=== PATIENT | female | born 1965 | race Caucasian/White ===

== ENCOUNTER 2016-12-13 13:10 | Inpatient (IN) | payer MEDICAID ==
[~2016-12-13] VITALS: Ht 170.2 cm; Wt 74.9 kg
[2016-12-13 14:10] LABS: CALCIUM 9.6 mg/dL (8.5-10.1); CARBON DIOXIDE 22.7 mmol/L (21-32); CHLORIDE SERUM 101 mmol/L (98-107); CREATININE SERUM 0.7 mg/dL (0.6-1.0); GFR1 > 60 mL/min; GLUCOSE SERUM 247 mg/dL (74-106); POTASSIUM SERUM 3.4 mmol/L (3.5-5.1); SODIUM SERUM 139 mmol/L (136-145)
[2016-12-13 14:15] LABS: ALBUMIN 4.2 g/dL (3.4-5.0); ALKALINE PHOSPHATASE 99 U/L (46-116); ALT/SGPT 42 U/L (14-59); AST/SGOT 17 U/L (15-37); BILIRUBIN TOTAL 0.92 mg/dL (0.20-1.00)
[2016-12-13 14:16] LABS: BASOPHIL % 0.4 % (0-2); PLATELET COUNT 275 x10^3mcL (130-400); RED CELL DISTRIBUTION WIDTH 12.8 % (11.5-14.5)
[2016-12-13 14:17] LABS: TOTAL PROTEIN, SERUM 8.5 g/dL (6.4-8.2)
[2016-12-13 14:39] LABS: microscopic required? YES; urine erythrocyte NEGATIVE (NEGATIVE)
[2016-12-13 16:24] LABS: AMPHETAMINE QUAL UR NONE DETECTED (NEG <=1000)
[2016-12-13 16:34] VITALS: BP 149/85
[2016-12-13 16:47] LABS: CHOLESTEROL/HDL RATIO 3.9; MAGNESIUM 1.6 mg/dL (1.8-2.4); PHOSPHOROUS 2.9 mg/dL (2.5-4.9)
[2016-12-13 16:56] VITALS: Ht 170.2 cm; Wt 74.9 kg
[2016-12-13 16:58] LABS: FREE T4 1.33 ng/dL (0.76-1.46); FREE THYROXINE INDEX 3.8 ug/dL (1.4-4.5); T4(THYROXINE) 10.3 ug/dL (4.7-13.3)
[2016-12-13 17:33] LABS: T3 TOTAL 1.29 ng/mL
[2016-12-13 21:26] VITALS: BP 99/55
[2016-12-14 05:32] VITALS: BP 104/60
[2016-12-14 06:11] LABS: BASOPHIL % 0.3 % (0-2); PLATELET COUNT 243 x10^3mcL (130-400); RED CELL DISTRIBUTION WIDTH 13.4 % (11.5-14.5)
[2016-12-14 06:13] LABS: CALCIUM 9.2 mg/dL (8.5-10.1); CARBON DIOXIDE 27.2 mmol/L (21-32); CHLORIDE SERUM 106 mmol/L (98-107); CREATININE SERUM 0.6 mg/dL (0.6-1.0); GFR1 > 60 mL/min; GLUCOSE SERUM 142 mg/dL (74-106); MAGNESIUM 2.1 mg/dL (1.8-2.4); PHOSPHOROUS 4.6 mg/dL (2.5-4.9); POTASSIUM SERUM 4.1 mmol/L (3.5-5.1); SODIUM SERUM 141 mmol/L (136-145)
[2016-12-14 09:30] VITALS: BP 107/60
[2016-12-14 13:20] VITALS: BP 128/70
[2016-12-14 16:38] VITALS: BP 124/64
[2016-12-14 20:43] VITALS: BP 123/78
[2016-12-15 06:00] VITALS: BP 115/61
[2016-12-15 06:15] LABS: BASOPHIL % 0.1 % (0-2); PLATELET COUNT 228 x10^3mcL (130-400); RED CELL DISTRIBUTION WIDTH 13.3 % (11.5-14.5)
[2016-12-15 06:41] LABS: CALCIUM 9.5 mg/dL (8.5-10.1); CARBON DIOXIDE 25.9 mmol/L (21-32); CHLORIDE SERUM 104 mmol/L (98-107); CREATININE SERUM 0.7 mg/dL (0.6-1.0); GFR1 > 60 mL/min; GLUCOSE SERUM 193 mg/dL (74-106); MAGNESIUM 1.7 mg/dL (1.8-2.4); PHOSPHOROUS 4.1 mg/dL (2.5-4.9); POTASSIUM SERUM 4.3 mmol/L (3.5-5.1); SODIUM SERUM 140 mmol/L (136-145)
[2016-12-15] MEDS ORDERED: ZES5 PO (10:39)
[2016-12-15] MEDS ORDERED: ECO81 PO (10:39)
[2016-12-15] MEDS ORDERED: LIPI10 PO (10:39)
[2016-12-15] MEDS ORDERED: LAC PO (10:40)
[2016-12-15] MEDS ORDERED: METFORMIN HCL1000 MG PO (10:40)
[2016-12-15] MEDS ORDERED: MAC100 PO (10:48)
[2016-12-15 10:53] VITALS: BP 125/71
[2016-12-15 11:32] VITALS: BP 125/71
== END 2016-12-15 14:50 | disposition home or self-care (01) | DRG 243 ==
LOC: ED 13:10 → DU 15:43
PROVIDERS: Emergency Medicine; Family Medicine; ADMIT Family Medicine
DX: K21.9 Gastro-esophageal reflux disease without esophagitis (principal); N17.0 Acute kidney failure with tubular necrosis; D68.69 Other thrombophilia; E11.65 Type 2 diabetes mellitus with hyperglycemia; E83.42 Hypomagnesemia; E11.51 Type 2 diabetes mellitus with diabetic peripheral angiopathy without gangrene; E87.6 Hypokalemia; N39.0 Urinary tract infection, site not specified; I10 Essential (primary) hypertension; E66.3 Overweight; Z68.25 Body mass index [BMI] 25.0-25.9, adult; Z79.84 Long term (current) use of oral hypoglycemic drugs; Z77.22 Contact with and (suspected) exposure to environmental tobacco smoke (acute) (chronic)
CPT/HCPCS: 82962; 83880; 84439; J0696; J2405; J3475; J7030; Q0092

== ENCOUNTER 2017-01-22 12:18 | Inpatient (IN) | payer MEDICAID ==
[~2017-01-22] VITALS: Ht 170.2 cm; Wt 73.1 kg
[~2017-01-22 12:18] MED LIST: ECO81 PO; LAC PO; LIPI10 PO; MAC100 PO; METFORMIN HCL1000 MG PO; ZES5 PO
[2017-01-22 13:17] LABS: BASOPHIL % 0.3 % (0-2); PLATELET COUNT 264 x10^3mcL (130-400); RED CELL DISTRIBUTION WIDTH 12.9 % (11.5-14.5)
[2017-01-22 13:25] LABS: CALCIUM 8.5 mg/dL (8.5-10.1); CARBON DIOXIDE 19.6 mmol/L (21-32); CHLORIDE SERUM 109 mmol/L (98-107); CREATININE SERUM 0.6 mg/dL (0.6-1.0); GFR1 > 60 mL/min; GLUCOSE SERUM 148 mg/dL (74-106); POTASSIUM SERUM 3.1 mmol/L (3.5-5.1); SODIUM SERUM 141 mmol/L (136-145)
[2017-01-22 13:30] LABS: ALBUMIN 3.7 g/dL (3.4-5.0); ALKALINE PHOSPHATASE 91 U/L (46-116); ALT/SGPT 27 U/L (14-59); AST/SGOT 13 U/L (15-37); BILIRUBIN TOTAL 0.7 mg/dL (0.20-1.00); TOTAL PROTEIN, SERUM 7.2 g/dL (6.4-8.2)
[2017-01-22] MEDS ORDERED: METFORMIN HYD1000 M2 PO (13:54)
[2017-01-22] MEDS ORDERED: ZESTRIL5 MG PO (13:54)
[2017-01-22] MEDS ORDERED: ASPIR 8181 MG PO (13:54)
[2017-01-22] MEDS ORDERED: LIPI10 PO (13:55)
[2017-01-22 14:54] VITALS: BP 132/81
[2017-01-22 14:54] LABS: microscopic required? YES; urine erythrocyte NEGATIVE (NEGATIVE)
[2017-01-22 15:01] LABS: T3 TOTAL 1.11 ng/mL
[2017-01-22 15:02] LABS: MAGNESIUM 1.4 mg/dL (1.8-2.4); PHOSPHOROUS 2.6 mg/dL (2.5-4.9)
[2017-01-22 15:03] LABS: CHOLESTEROL/HDL RATIO 2.6
[2017-01-22 15:08] LABS: FREE T4 1.2 ng/dL (0.76-1.46); T4(THYROXINE) 8.3 ug/dL (4.7-13.3)
[2017-01-22 17:01] VITALS: Ht 170.2 cm; Wt 73.1 kg
[2017-01-22 17:12] LABS: AMPHETAMINE QUAL UR NONE DETECTED (NEG <=1000)
[2017-01-22 17:55] VITALS: BP 131/84
[2017-01-22 21:37] VITALS: BP 143/73
[2017-01-23 06:01] VITALS: BP 127/74
[2017-01-23 06:58] LABS: BASOPHIL % 0.2 % (0-2); PLATELET COUNT 273 x10^3mcL (130-400); RED CELL DISTRIBUTION WIDTH 13.1 % (11.5-14.5)
[2017-01-23 07:08] LABS: CALCIUM 9.3 mg/dL (8.5-10.1); CARBON DIOXIDE 22.8 mmol/L (21-32); CHLORIDE SERUM 106 mmol/L (98-107); CREATININE SERUM 0.7 mg/dL (0.6-1.0); GFR1 > 60 mL/min; GLUCOSE SERUM 162 mg/dL (74-106); MAGNESIUM 1.9 mg/dL (1.8-2.4); PHOSPHOROUS 4.3 mg/dL (2.5-4.9); POTASSIUM SERUM 4.7 mmol/L (3.5-5.1); SODIUM SERUM 139 mmol/L (136-145)
[2017-01-23] MEDS ORDERED: LAC PO (07:16)
[2017-01-23] MEDS ORDERED: LEVAQUIN750 MG PO (07:17)
[2017-01-23 09:38] VITALS: BP 132/73
[2017-01-23 10:33] VITALS: BP 132/73
== END 2017-01-23 11:11 | disposition home or self-care (01) | DRG 756 ==
LOC: ED 12:18 → DU 13:48
PROVIDERS: Emergency Medicine; ADMIT Family Medicine
DX: F41.1 Generalized anxiety disorder (principal); E11.65 Type 2 diabetes mellitus with hyperglycemia; E83.42 Hypomagnesemia; I07.1 Rheumatic tricuspid insufficiency; B35.3 Tinea pedis; I10 Essential (primary) hypertension; N39.0 Urinary tract infection, site not specified; E87.6 Hypokalemia; E78.5 Hyperlipidemia, unspecified; E66.3 Overweight; Z68.25 Body mass index [BMI] 25.0-25.9, adult; Z79.84 Long term (current) use of oral hypoglycemic drugs; Z79.82 Long term (current) use of aspirin; Z87.891 Personal history of nicotine dependence
CPT/HCPCS: 82962; 83880; 84439; J0696; J2270; J2405; J3475; J7030; Q0092

== ENCOUNTER 2017-05-09 12:42 | Inpatient (IN) | payer OTHER ==
[~2017-05-09] VITALS: Ht 170.2 cm; Wt 66.2 kg
[~2017-05-09 12:42] MED LIST changes: +ASPIR 8181 MG PO; +LEVAQUIN750 MG PO; +METFORMIN HYD1000 M2 PO; +ZESTRIL5 MG PO
[2017-05-09 12:44] VITALS: Ht 170.2 cm; Wt 66.2 kg
[2017-05-09 13:13] LABS: BASOPHIL % 0.3 % (0-2); PLATELET COUNT 282 x10^3mcL (130-400); RED CELL DISTRIBUTION WIDTH 12.6 % (11.5-14.5)
[2017-05-09 14:24] LABS: CALCIUM 9.6 mg/dL (8.5-10.1); CARBON DIOXIDE 21.5 mmol/L (21-32); CHLORIDE SERUM 104 mmol/L (98-107); CREATININE SERUM 0.7 mg/dL (0.6-1.0); GFR1 > 60 mL/min; GLUCOSE SERUM 167 mg/dL (74-106); POTASSIUM SERUM 3.6 mmol/L (3.5-5.1); SODIUM SERUM 143 mmol/L (136-145)
[2017-05-09 14:29] LABS: ALBUMIN 4.2 g/dL (3.4-5.0); ALKALINE PHOSPHATASE 88 U/L (46-116); ALT/SGPT 38 U/L (14-59); AST/SGOT 21 U/L (15-37); BILIRUBIN TOTAL 0.8 mg/dL (0.20-1.00)
[2017-05-09 15:24] VITALS: BP 152/86
[2017-05-09 16:02] LABS: MAGNESIUM 1.5 mg/dL (1.8-2.4); PHOSPHOROUS 3.4 mg/dL (2.5-4.9)
[2017-05-09 16:04] LABS: CHOLESTEROL/HDL RATIO 2.6
[2017-05-09 16:06] LABS: T3 TOTAL 1.21 ng/mL
[2017-05-09 16:09] LABS: FREE T4 1.21 ng/dL (0.76-1.46); FREE THYROXINE INDEX 2.7 ug/dL (1.4-4.5); T4(THYROXINE) 7.9 ug/dL (4.7-13.3)
[2017-05-09 17:53] VITALS: BP 130/77
[2017-05-09 17:58] LABS: microscopic required? NO
[2017-05-09 18:11] LABS: urine erythrocyte NEGATIVE (NEGATIVE)
[2017-05-09 18:18] LABS: AMPHETAMINE QUAL UR NONE DETECTED (NEG <=1000)
[2017-05-09 21:33] VITALS: BP 111/66
[2017-05-10 05:20] VITALS: BP 133/52
[2017-05-10 06:50] LABS: BASOPHIL % 0.4 % (0-2); PLATELET COUNT 245 x10^3mcL (130-400); RED CELL DISTRIBUTION WIDTH 12.9 % (11.5-14.5)
[2017-05-10 07:41] LABS: CALCIUM 8.9 mg/dL (8.5-10.1); CARBON DIOXIDE 21.9 mmol/L (21-32); CHLORIDE SERUM 107 mmol/L (98-107); CREATININE SERUM 0.7 mg/dL (0.6-1.0); GFR1 > 60 mL/min; GLUCOSE SERUM 162 mg/dL (74-106); MAGNESIUM 1.9 mg/dL (1.8-2.4); PHOSPHOROUS 4.1 mg/dL (2.5-4.9); POTASSIUM SERUM 4.1 mmol/L (3.5-5.1); SODIUM SERUM 142 mmol/L (136-145)
[2017-05-10 09:45] VITALS: BP 137/74
[2017-05-10] MEDS ORDERED: [UNRECOGNIZED DRUG - OTHER] TOP (10:57)
[2017-05-10] MEDS ORDERED: METOPROLOL TART25 M1 PO (11:51)
[2017-05-10] MEDS ORDERED: LEXAPRO10 MG PO (11:52)
[2017-05-10] MEDS ORDERED: [UNRECOGNIZED DRUG - OTHER] TOP (11:52)
[2017-05-10] MEDS ORDERED: PRI20 PO (11:52)
[2017-05-10 13:40] VITALS: BP 157/90
[2017-05-10 17:31] VITALS: BP 161/69
[2017-05-10 19:35] VITALS: BP 148/78
[2017-05-11 05:49] VITALS: BP 132/76
[2017-05-11 05:58] LABS: BASOPHIL % 0.4 % (0-2); PLATELET COUNT 257 x10^3mcL (130-400); RED CELL DISTRIBUTION WIDTH 12.8 % (11.5-14.5)
[2017-05-11 06:26] LABS: CALCIUM 9.4 mg/dL (8.5-10.1); CARBON DIOXIDE 25.6 mmol/L (21-32); CHLORIDE SERUM 106 mmol/L (98-107); CREATININE SERUM 0.7 mg/dL (0.6-1.0); GFR1 > 60 mL/min; GLUCOSE SERUM 150 mg/dL (74-106); MAGNESIUM 1.9 mg/dL (1.8-2.4); POTASSIUM SERUM 4.1 mmol/L (3.5-5.1); SODIUM SERUM 142 mmol/L (136-145)
[2017-05-11 09:23] VITALS: BP 132/76
[2017-05-11 09:29] VITALS: BP 149/76
[2017-05-11 13:39] VITALS: BP 139/77
[2017-05-11 13:48] VITALS: BP 133/75
[2017-05-11 16:53] VITALS: BP 138/78
== END 2017-05-11 18:09 | disposition home or self-care (01) | DRG 243 ==
LOC: ED 12:42 → DU 14:23
PROVIDERS: Emergency Medicine; Family Medicine
DX: K21.9 Gastro-esophageal reflux disease without esophagitis (principal); E11.65 Type 2 diabetes mellitus with hyperglycemia; I10 Essential (primary) hypertension; E78.5 Hyperlipidemia, unspecified; F41.9 Anxiety disorder, unspecified; I07.1 Rheumatic tricuspid insufficiency; E83.42 Hypomagnesemia; Z98.51 Tubal ligation status; Z79.84 Long term (current) use of oral hypoglycemic drugs; Z80.42 Family history of malignant neoplasm of prostate; Z83.3 Family history of diabetes mellitus; Z82.49 Family history of ischemic heart disease and other diseases of the circulatory system; Z87.891 Personal history of nicotine dependence; Z72.89 Other problems related to lifestyle; Z59.0 Homelessness
CPT/HCPCS: 82962; 83880; 84439; J1885; J7030; Q0092